=== PATIENT | female | born 1990 | race Caucasian/White ===

== ENCOUNTER → 2020-01-04 11:05 | Outpatient (CLI) | payer MEDICAID, SELFPAY ==
[2020-01-04 14:07] LABS: hCG Titer Quant., Serum 6058 mIU/mL (1-3)
== END ==
PROVIDERS: Referring Provider Obstetrics & Gynecology; Visit Provider Obstetrics & Gynecology
DX: Z78.9 Other specified health status (principal)
CPT/HCPCS: 36415; 84702

== ENCOUNTER → 2020-01-12 12:29 | Outpatient (CLI) | payer MEDICAID, SELFPAY ==
--- NOTE | 2020-01-12 12:30 | US_ITS ---
STUDY: FIRST TRIMESTER OBSTETRICAL ULTRASOUND REASON FOR EXAM: Female, 29 years old VIABILITY LMP: November 25, 2019 TECHNIQUE: Transvaginal TECHNICAL QUALITY: Adequate. PRIOR ULTRASOUND: None. FINDINGS: There is visualization of a single gestational sac in a normal intrauterine position. The mean sac diameter (MSD) measures 1.89 cm, indicating an estimated gestational age (EGA) of 6 weeks, 5 days. The gestational sac shape is within normal limits. There is a visualized yolk sac. The yolk sac measures 4.6 mm. The placenta is non-visualized. There is visualization of a live embryo. The crown-rump length (CRL) measures 8.6 mm, indicating an estimated gestational age (EGA) of 6 weeks, 5 days. There is demonstrated cardiac activity with a heart rate of 124 bpm. The estimated gestation age (EGA) by LMP is 6 weeks, 6 days. The estimated date of delivery (TAY) by LMP is August 31, 2020. The estimated gestation age (EGA) by US is 6 weeks, 5 days. The estimated date of delivery (TAY) by US is September 01, 2020. The uterus measures 8.6 cm x 6.1 cm x 5.3 cm.. There is no demonstrated uterine fibroid. The cervix is closed. There is a 2 cm x 2 cm x 1.9 cm subchorionic bleed. The right ovary measures 6.5 cm x 3.6 cm x 3.5 cm.. Within it, there is a 3.3 cm x 3.3 cm by 3.3 cm cyst. Adjacent to this, is a 2.7 cm x 2.5 cm x 1.9 cm cyst. The left ovary measures 2.7 cm x 1.7 cm x 1.8 cm. There is no left ovarian cyst. There is no visualized left adnexal mass or complex lesion. There is no fluid in the cul de sac. US/Init OB < 14Wks US IMPRESSION: Single live intrauterine gestation with a mean gestational age of 6 weeks and 5 days. There are 2 right ovarian cysts. Electronically Signed: Anthony Smith, at 13:39 EST , Service support ,
== END ==
PROVIDERS: Referring Provider Obstetrics & Gynecology; Visit Provider Obstetrics & Gynecology
DX: Z34.90 Encounter for supervision of normal pregnancy, unspecified, unspecified trimester (principal)
CPT/HCPCS: 76801

== ENCOUNTER → 2020-01-31 | Outpatient (CLI) | payer MEDICAID, SELFPAY ==
[2020-01-31 14:12] VITALS: BMI 25.2
[2020-01-31 16:39] LABS: Amphetamine Urine VISTA NEGATIVE (<1000 ng/mL); Barbiturate Urine VISTA NEGATIVE (< 200 ng/mL); Benzodiazepine Urine VISTA NEGATIVE (< 200 ng/mL); Cocaine Urine VISTA NEGATIVE (< 300 ng/mL); Ecstacy Urine VISTA NEGATIVE (< 500 ng/mL); Methadone Urine VISTA NEGATIVE (< 300 ng/mL); PCP Urine VISTA NEGATIVE (< 25 ng/mL); THC Urine VISTA NEGATIVE (< 50 ng/mL); Vista UDS pH Range 6
[2020-01-31 20:05] LABS: Chlamydia Trachomatis by PCR Negative (Negative); Neisserai gonorrhoeae by PCR Negative (Negative); Probe Check PASS; Sample Adequacy Control PASS; Specimen Processing Control PASS
[2020-02-04 03:06] LABS: HPV Genotype 16, Aptima Negative (Negative)
[2020-02-04 07:06] LABS: HPV APTIMA, High Risk Positive (Negative); HPV Genotype 18,45 Aptima Negative (Negative)
== END | disposition home or self-care (01) ==
LOC: LABSPEC 16:05
PROVIDERS: Visit Provider Obstetrics & Gynecology
DX: Z34.90 Encounter for supervision of normal pregnancy, unspecified, unspecified trimester (principal); Z12.4 Encounter for screening for malignant neoplasm of cervix
CPT/HCPCS: 80307; 87086; 87491; 87591; 87624; 88175; G0145

== ENCOUNTER → 2020-03-01 15:18 | Outpatient (CLI) | payer MEDICAID, SELFPAY ==
[2020-03-01 15:01] VITALS: BMI 25.2
[2020-03-01 15:50] LABS: Absolute Lymphocyte Count 1.67 X10^3/uL (0.83-4.51); Absolute Neutrophil Count 4.5 X10^3/uL (2.0-7.7); Basophil# 0.03 X10^3/uL; Basophil% 0.4 % (0-1); Eosinophil# 0.08 X10^3/uL; Eosinophils% 1.2 % (0-5); Hematocrit 34.4 % (37-47); Hemoglobin 11.7 g/dL (12.0-15.0); Lymphocyte # 1.67 X10^3/ul (4.0); Lymphocyte % 24.9 % (19-41); Mean Corpuscular Volume 96.9 fL (81-99); Mean Platelet Vol. 10.1 fl (6.2-12.0); Monocyte# 0.42 X10^3/uL; Monocyte% 6.3 % (0-10); NRBC Flagged by Analyzer 0 % (0-5); Neutrophil # 4.49 X10^3/uL (2.7-7.7); Neutrophil % 66.9 % (47-70); Platelet Count 223 K/mm3 (150-450); RBC Distribution Width CV 11.4 % (11.6-14.6); RBC Distribution Width SD 40.5 fl (35.1-43.9); Red Blood Count 3.55 M/mm3 (4.2-5.4); White Blood Count 6.7 K/mm3 (4.4-11.0)
[2020-03-02] LABS: Rapid Plasmin Reagin (RPR) NONREACTIVE (NONREACTIVE)
[2020-03-02 13:29] LABS: HIV - WCH Non-Reactive (Nonreactive); Hepatitis B Surface Antigen Non-Reactive (Nonreactive); Hepatitis C Antibody Non-Reactive (Nonreactive); Rubella IgG 140.9 IU/mL
== END ==
PROVIDERS: Referring Provider Nurse Practitioner Women's Health; Visit Provider Nurse Practitioner Women's Health
DX: O09.90 Supervision of high risk pregnancy, unspecified, unspecified trimester (principal); Z3A.00 Weeks of gestation of pregnancy not specified
CPT/HCPCS: 36415; 85025; 86592; 86703; 86762; 86803; 86850; 86900; 86901; 87340

== ENCOUNTER → 2020-04-28 15:50 | Outpatient (CLI) | payer MEDICAID, SELFPAY ==
[2020-04-27 14:12] VITALS: BMI 25.2
--- NOTE | 2020-04-28 15:52 | US_ITS ---
STUDY: SECOND AND THIRD TRIMESTER OBSTETRICAL ULTRASOUND REASON FOR EXAM: Female, 30 years routine screening LMP: 11/25/2019 TECHNIQUE: Transabdominal TECHNICAL QUALITY: Adequate. PRIOR ULTRASOUND: 01/22/2020 FINDINGS: There is a single intrauterine fetus. The fetus is in a breech presentation. There is demonstrated cardiac activity with a heart rate of 140 bpm. There is a normal amniotic fluid volume. The largest amniotic fluid pocket measures 3.6 cm. T. The placenta is anterior in location and is not low lying. There are Grade 1 placental changes. The cervix measures 3.9 cm in length. The bilateral adnexal regions are normal. BIOMETRY: BPD: 5.2 cm: 22 weeks, 0 days HC: 19.7 cm: 21 weeks, 6 days AC: 16.9 cm: 22 weeks, 0 days FL: 3.7 cm: 21 weeks, 6 days OFD: 6.7 cm: 22 weeks 0 days age by current US: 22 weeks, 0 days. TAY by current US: 09/01/2020. Estimated weight: 456 grams, +/- 67 grams, 29 %. age by prior US: 22 weeks, 0 days. TAY by prior US: 09/01/20. Age by LMP: 22 weeks, 1 days. TAY by LMP: 08/31/2020. ANATOMY: Gender: Female Cranium: Normal lateral ventricles. Normal choroid plexus. Normal cerebellum. Normal cisterna magna. Normal face, nose and lips. Chest: Normal 4-chamber heart. Abdomen/Pelvis: Normal diaphragm. Normal stomach. Normal abdominal wall. Normal cord insertion. Normal 3 vessel cord. Normal kidneys. Normal bladder. Spine: There is limited sonographic evaluation of the cervical, thoracic, lumbar spine, and sacrum due to baby''s position Extremities: Normal bilateral upper extremities. Normal bilateral lower extremities. US/OB Anatomy Scan IMPRESSION: Single live intrauterine at 22 weeks, 0 days by current ultrasound with TAY of 09/01/2020. Heart rate at 140 bpm. No suspicious sonographic findings. However, the cervical, thoracic, lumbar spine and sacrum are not well visualized due to position which on this study is breech. Normal growth noted since the previous study. Electronically Signed: Rod Maradiaga MD at 7:53 EDT , Service support ,
== END ==
PROVIDERS: Referring Provider Obstetrics & Gynecology; Visit Provider Obstetrics & Gynecology
DX: Z34.90 Encounter for supervision of normal pregnancy, unspecified, unspecified trimester (principal)
CPT/HCPCS: 76805

== ENCOUNTER → 2020-05-10 11:25 | Outpatient (CLI) | payer MEDICAID, SELFPAY ==
[2020-04-27 14:12] VITALS: BMI 25.2
--- NOTE | 2020-05-10 11:26 | US_ITS ---
STUDY: SECOND AND THIRD TRIMESTER OBSTETRICAL ULTRASOUND - LIMITED REASON FOR EXAM: Female, 30 years old SPINAL VIEWS LMP: November 25, 2019 PRIOR ULTRASOUND: Comparison is made with prior examination dated April 28, 2020. TECHNIQUE: Transabdominal TECHNICAL QUALITY: Adequate. FINDINGS: There is a single intrauterine fetus. The fetus is in a breech presentation. There is demonstrated cardiac activity with a heart rate of 143 bpm. There is a normal amniotic fluid volume. The largest amniotic fluid pocket measures 6.7 cm x 8.8 cm. The amniotic fluid index (SUSANA) is with normal limits. The placenta is posterior in location and is not low lying. There are Grade 0 placental changes. The cervix measures cm in length. Imaging of this spine was obtained. Limited visualization of the sacral and lower lumbar spine due to position. The remainder of the examination is unremarkable. US/OB Limited (No Biometrics) IMPRESSION: Limited visualization of the sacral and lower lumbar spine due to position. Otherwise, normal anatomy. Electronically Signed: Anthony Smith, at 15:46 EDT , Service support ,
== END ==
PROVIDERS: Referring Provider Obstetrics & Gynecology; Visit Provider Obstetrics & Gynecology
DX: O09.90 Supervision of high risk pregnancy, unspecified, unspecified trimester (principal); Z3A.00 Weeks of gestation of pregnancy not specified
CPT/HCPCS: 76815

== ENCOUNTER → 2020-06-09 13:37 | Outpatient (CLI) | payer MEDICAID, SELFPAY ==
[2020-05-26 14:40] VITALS: BMI 25.2
[2020-06-09 14:29] LABS: Absolute Lymphocyte Count 1.66 X10^3/uL (0.83-4.51); Absolute Neutrophil Count 5.6 X10^3/uL (2.0-7.7); Basophil# 0.02 X10^3/uL; Basophil% 0.3 % (0-1); Eosinophil# 0.06 X10^3/uL; Eosinophils% 0.8 % (0-5); Hematocrit 32.3 % (37-47); Hemoglobin 10.7 g/dL (12.0-15.0); Lymphocyte # 1.66 X10^3/ul (4.0); Mean Corp Hgb Conc 33.1 g/dL (32-36); Mean Corpuscular Hgb 32.4 pg (27.0-32.0); Mean Corpuscular Volume 97.9 fL (81-99); Mean Platelet Vol. 10.3 fl (6.2-12.0); Monocyte# 0.56 X10^3/uL; Monocyte% 7.1 % (0-10); NRBC Flagged by Analyzer 0 % (0-5); Neutrophil # 5.57 X10^3/uL (2.7-7.7); Neutrophil % 70.3 % (47-70); Platelet Count 233 K/mm3 (150-450); RBC Distribution Width CV 12.4 % (11.6-14.6); White Blood Count 7.9 K/mm3 (4.4-11.0)
[2020-06-09 14:51] LABS: Glucose Challenge Gest 1H 50g 128 mg/dL (70-140)
== END ==
PROVIDERS: Referring Provider Obstetrics & Gynecology; Visit Provider Obstetrics & Gynecology
DX: O09.90 Supervision of high risk pregnancy, unspecified, unspecified trimester (principal); Z3A.00 Weeks of gestation of pregnancy not specified
CPT/HCPCS: 36415; 82950; 85025

== ENCOUNTER → 2020-07-26 14:33 | Outpatient (CLI) | payer MEDICAID, SELFPAY ==
[2020-07-26 14:30] VITALS: BMI 25.2
[2020-07-26 15:04] LABS: Absolute Lymphocyte Count 1.85 X10^3/uL (0.83-4.51); Basophil# 0.02 X10^3/uL; Basophil% 0.2 % (0-1); Eosinophil# 0.05 X10^3/uL; Eosinophils% 0.6 % (0-5); Hematocrit 35.3 % (37-47); Hemoglobin 11.8 g/dL (12.0-15.0); Lymphocyte # 1.85 X10^3/ul (4.0); Lymphocyte % 21.6 % (19-41); Mean Corp Hgb Conc 33.4 g/dL (32-36); Mean Corpuscular Hgb 32.8 pg (27.0-32.0); Mean Corpuscular Volume 98.1 fL (81-99); Mean Platelet Vol. 10.3 fl (6.2-12.0); Monocyte# 0.55 X10^3/uL; Monocyte% 6.4 % (0-10); NRBC Flagged by Analyzer 0 % (0-5); Neutrophil # 6.04 X10^3/uL (2.7-7.7); Neutrophil % 70.5 % (47-70); Platelet Count 256 K/mm3 (150-450); RBC Distribution Width CV 12.9 % (11.6-14.6); RBC Distribution Width SD 46.3 fl (35.1-43.9); White Blood Count 8.6 K/mm3 (4.4-11.0)
== END ==
PROVIDERS: Referring Provider Obstetrics & Gynecology; Visit Provider Obstetrics & Gynecology
DX: O99.019 Anemia complicating pregnancy, unspecified trimester (principal); D64.9 Anemia, unspecified; Z3A.00 Weeks of gestation of pregnancy not specified
CPT/HCPCS: 36415; 85025

== ENCOUNTER → 2020-08-02 10:10 | Outpatient (CLI) | payer MEDICAID, SELFPAY ==
[2020-07-26 13:48] VITALS: BMI 25.2
[2020-07-26 14:30] VITALS: BMI 25.2
--- NOTE | 2020-08-02 10:11 | US_ITS ---
STUDY: SECOND AND THIRD TRIMESTER OBSTETRICAL ULTRASOUND - LIMITED REASON FOR EXAM: Female, 30 years old GROWTH LMP: 11/27/2019. PRIOR ULTRASOUND: Comparison is made with prior study dated 05/10/2020. TECHNIQUE: Transabdominal TECHNICAL QUALITY: Adequate. FINDINGS: There is a single intrauterine fetus. The fetus is in a cephalic presentation. There is demonstrated cardiac activity with a heart rate of 129 bpm. There is a normal amniotic fluid volume. The largest amniotic fluid pocket measures 7.16 cm. The amniotic fluid index (SUSANA) is 19.36 cm. The placenta is anterior in location and is not low lying. There are Grade 2 placental changes. The cervix measures 3.1 cm in length. BIOMETRY: BPD: 8.83 cm: 35 weeks, 5 days HC: 31.6 cm: 35 weeks, 4 days AC: 30.23 cm: 34 weeks, 2 days FL: 6.46 cm: 33 weeks, 3 days Age by LMP: 35 weeks, 4 days. TAY by LMP: 09/02/2020. age by prior US: 35 weeks, 5 days. TAY by prior US: 09/01/2020. age by current US: 34 weeks, 6 days. TAY by current US: 09/07/2020. Estimated weight: 2380 grams, +/- 348 grams, 16 percentile. US/OB Limited With Biometrics IMPRESSION: Single live uterine gestation with a mean gestational age of 35 weeks and 5 days. The measurements obtained today following within the normal expected range. Electronically Signed: Anthony Smith, at 12:20 EDT , Service support ,
== END ==
PROVIDERS: Referring Provider Obstetrics & Gynecology; Visit Provider Obstetrics & Gynecology
DX: O26.843 Uterine size-date discrepancy, third trimester (principal); Z3A.00 Weeks of gestation of pregnancy not specified
CPT/HCPCS: 76816

== ENCOUNTER 2020-08-09 10:40 | Outpatient (CLI) | payer MEDICAID, SELFPAY ==
[2020-08-02 11:49] VITALS: BMI 25.2
[2020-08-09 10:52] VITALS: TEMP 36.6
[2020-08-09 10:54] VITALS: BP 104/55; PULSE 82
[2020-08-09 11:03] VITALS: BMI 27.6
[2020-08-09 11:37] LABS: ROM Internal Control Test YES-OK TO RESULT pt. (Internal QC); ROM Patient Test Negative (Negative)
[2020-08-09 11:55] LABS: Bacteria 0 SEEN /hpf (None Seen); Mucous, Urine 0 SEEN /hpf (<or=2+); Red Blood Cells-Urine 0 SEEN /hpf (0-5); White Blood Cells 0 SEEN /hpf (0-5)
[2020-08-09 11:57] LABS: Color, Urine Yellow (Yellow); Glucose, Dipstick Normal (Normal); Ketone-Dipstick Negative (Negative); Leukocyte Esterase-Dipstick Negative /ul (Negative); Nitrite-Dipstick Negative (Negative); Occult Blood-Urine Negative /ul (Negative); Protein-Dipstick Negative (Negative); Urine Bilirubin Dipstick Negative (Negative); Urine Clarity Clear (Clear); Urine Urobilinogen Normal (Normal)
[2020-08-09 12:12] LABS: Squamous Epithelial Cells - UA 0-5 SEEN /hpf (5-10)
--- NOTE | 2020-08-09 14:43 | CASEMGMT ---
Social Work Labor and Delivery Unit Reason for Intervention: adoption planning, support. Summary: This casualty underwriter aware of this patient from prior phone and in-person conversations regarding adoption planning. This casualty underwriter met with patient/ mother on 05.26.2020 to review some preplanning and answer questions. MOB completed the adoptive checklist form for [facility] at that time. This casualty underwriter received phone call from prospective adoptive mother conveying an blade worker by the name of Tiffanie Cabello will be calling this casualty underwriter to touch base, and review patient's plan and wishes. Prospective adoptive mother conveyed to this casualty underwriter that the mother/patient actually on the labor and delivery until this date ruling out labor. This casualty underwriter noted that patient was in fact on the unit as a clinical outpatient. Met with patient in room. Patient expressed remembering this casualty underwriter. Sat with patient to check in and see how things are going. MOB confirms to be working with Tiffanie, blade worker. MOB reports the only thing that changed for the adoptive infant checklist, besides having an adoption agency in place, is that patient wants to do some skin to skin with baby after , voices anticipation this will be short in duration, with plan to give infant to the nursing staff and then to have adoptive parents provide all care of the baby. Patient's support person in the hospital will be the patient's mother. Patient reports plan to sign a power of contract attorney after baby is born allowing the prospective adoptive parents to care for baby outside of hospital. Assessment: Patient reports to be ready for this to be over and for the adoption planning to move forward. Patient reports this situation is a difficult one for the patient and not an easy decision. Patient reports to feel committed however to the making and adoption plan as patient does not have the space or finances to provide for the baby. Patient reports to feel she needs to focus on being able to care for the children who are already here. Patient has a 10 year old daughter Ally, and then a 7 year old son named Lio or Devyn. Supportive listening offered to the patient, validated feelings. Intervention: Placed adoptive infant checklist on chart on labor and delivery unit, just in case patient comes in during hours that social work is not the building. Emotional support provided to patient this date. Plan: Social work to follow and assist at time of delivery admission. -CECIL Telles, PHOTOGRAPHIC EDITOR
--- NOTE | 2020-08-12 17:30 | OB.TRI.PN_ITS ---
Progress Notes Date of Service: 08/09/20 Progress Note: 30yo at 36 weeks evaluated in triage for pelvic cramping and leakage of fluid. Cervix closed. Occasional contractions on toco, but not uncomfortable. UA negative for infection. ROM plus negative. NST reactive. Patient discharged to home in stable condition with good return precautions. Laboratory Studies: Laboratory Tests 08/09/20 08/09/20 Range/Units 11:30 11:00 Urine Color Yellow (Yellow) Urine Clarity Clear (Clear) Urine pH 8.0 (5.0 - 8.0) Ur Specific [place] 1.010 (1.002-1.030) Urine Protein Negative (Negative) mg/dl Urine Glucose (UA) Normal (Normal) mg/dl Urine Ketones Negative (Negative) mg/dl Urine Occult Blood Negative (Negative) /ul Urine Nitrite Negative (Negative) Urine Bilirubin Negative (Negative) mg/dL Urine Urobilinogen Normal (Normal) mg/dl Ur Leukocyte Esterase Negative (Negative) /ul Urine RBC 0 SEEN (0-5) /hpf Urine WBC 0 SEEN (0-5) /hpf Ur Squamous Epith Cells 0-5 SEEN (5-10) /hpf Urine Bacteria 0 SEEN (None Seen) /hpf Urine Mucus 0 SEEN (<or=2+) /hpf Vag Amniotic Fld Detect Negative (Negative) - Problem List (1) Vaginal discharge during Status: Acute Multi Select Codes - Urinary/Genital Urinary/Genital CPT Codes: 93554-63 non-stress test Interp
== END 2020-08-09 12:35 | disposition home or self-care (01) ==
LOC: WPOUT 10:45 → WP 10:45
PROVIDERS: Obstetrics & Gynecology; Referring Provider Obstetrics & Gynecology; Visit Provider Obstetrics & Gynecology
DX: O26.893 Other specified pregnancy related conditions, third trimester (principal); R10.2 Pelvic and perineal pain; N89.8 Other specified noninflammatory disorders of vagina; Z3A.36 36 weeks gestation of pregnancy
CPT/HCPCS: 59025; 59050; 81001; 84112; 99218; G0378

== ENCOUNTER → 2020-08-16 | Outpatient (CLI) | payer MEDICAID, SELFPAY ==
[2020-08-16 11:03] VITALS: BMI 27.6
== END | disposition home or self-care (01) ==
LOC: LABSPEC 13:39
PROVIDERS: Referring Provider Obstetrics & Gynecology; Visit Provider Obstetrics & Gynecology
DX: O09.90 Supervision of high risk pregnancy, unspecified, unspecified trimester (principal); Z3A.00 Weeks of gestation of pregnancy not specified
CPT/HCPCS: 87081

== ENCOUNTER 2020-08-24 09:40 | Inpatient (IN) | payer MEDICAID, SELFPAY ==
[2020-05-26 14:40] VITALS: BMI 25.2
[2020-08-16 11:03] VITALS: BMI 27.6
[2020-08-24] VITALS (16 sets, daily range): BP systolic 88–116; BP diastolic 40–70; PULSE 72–103; RESP 16–18; TEMP 36.3–37; O2SAT 96–99; BMI 28.0
--- NOTE | 2020-08-24 | IMM_PTH ---
PATIENT: NGUYỄN EVANGELISTA LOC: WP U#:[id number] AGE/SX: 30/F ROOM: WP005 RE08/24/[address]: Dr. Cindy Gilliland MD : 1990 BED: 1 DIS: 08/25/2020 SPEC #: [id number] RECD: 08/28/20 13:59 STATUS: IRMA REQ #: [id number] HAVEN: 08/24/20 00:[address]: Cindy Gilliland DEPT: IMMUNOHISTOCHEMISTRY RECD BY: Stephie Vega ENTERED: 08/28/20 14:00 SP TYPE: IMMUNO OTHR DR: No Primary Care Phys Tissues: Fallopian tube Procedures: Charli Ret (add) CD31 (add) CK20 (add) CK8 (add) Vimentin (add) FACTOR VIII (add) CK7 (initial) PHYSICIAN & INSTITUTION [place] [id number] SPECIMEN INFORMATION: Tissue Source: Fallopian tubes Clinical Info: Sterilization Specimen Number: [id number] #2 CPT code: 67341, 01614 x6 METHODOLOGY: Deparaffinized sections of prefer/formalin-fixed tissue or PAP/DQ stained slides are incubated with monoclonal/polyclonal antibodies/oligonucleotide probes. Localization is made via biotin free immunoperoxidase method. Appropriate controls are performed and reacted as expected. Results on target cell population are indicated in the following table: RESULTS: ANTIBODY / CLONE RESULT Block 2 CK7 (OV-TL12/30) positive CK8 (41eqdrE98) positive CK20 (KS20.8) negative Vimentin (V9) positive CD31 (PEG/70A) negative Factor VIII (R Ag) negative CALRET (polyclonal) positive These tests were developed and their performance characteristics determined by [facility]. They may not have been cleared or approved by the U.S. Food and Drug Administration. The FDA has determined that such clearance or approval is not necessary. The above immunohistochemical/dualISH markers are ordered and reviewed by the Pathologist. INTERPRETATION: Fallopian tubes: Benign adenomatoid tumor. SJ:janette 08/29/20
--- NOTE | 2020-08-24 09:06 | HP.PCM_ITS ---
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 random tox screen, social and political studies professor consult (5) Status: Acute Qualifiers: Comment: nipt and carrier, ntd screening declined. anatomy normal. GBS negative (6) with adoption planned Status: Acute Comment: private adoption planned- [place]. (7) Sterilization Status: Acute Comment: planning BS, title 19 signed 05/26 (8) Supervision of high risk , antepartum Status: Acute Comment: PRR TAY 08/31/20 girl PC- lacie, gael spouse saul (dtr Maday) (9) Tobacco smoking affecting Status: Acute Qualifiers: Comment: encouraged cessation (10) Uterine size-date discrepancy, third trimester Status: Acute Comment: 08/02- growth 16% (11) Vaginal discharge during Status: Acute History and Physical Date of Admission: 08/24/20 Intake Vital Signs 08/16/20 BMI 27.6 08/16/20 Height 5 ft 7 in 08/16/20 Weight: 182 lb 8 oz 08/16/20 BMI 28.5 08/16/20 BP 108/70 Intake Visit Reasons: 38WK OB Stringed Instrument Repairer Required: No Is patient in pain?: No Allergies acetaminophen [From Percocet] Allergy (Mild, Verified 08/16/20 11:02) Hives oxycodone [From Percocet] Allergy (Mild, Verified 08/16/20 11:02) Hives Medications vitamin#30 30 mg iron-10 mg iron-folic acid 1 mg-omg3 capsule 1 cap PO DAILY 01/31/20 [History Confirmed 08/16/20] sertraline 50 mg tablet 50 mg PO QDAY #30 tab 03/27/20 [Rx Confirmed 08/16/20] ferrous sulfate 325 mg (65 mg iron) tablet 325 mg PO DAILY 06/29/20 [History Confirmed 08/16/20] Last Menstral Period: 11/25/19 Zika: Zika virus screening: Negative : No PFSH PFSH Medical History Anxiety and depression (Acute) Post traumatic stress disorder (PTSD) (Acute) Seasonal allergies (Acute) Surgical History delivery delivered (Acute) Social History (Updated 08/16/20 @ 21:[address] Lexi Aguayo MD) Smoking Status: Light Smoker (<10/day) alcohol intake: never substance use type: does not use caffeine: Yes what type of physical activity do you participate in: none seatbelt use: always do you feel safe at home: Yes additional social history: Saul- Works for [employer] Patient stays at home Pregancy History 4 Elective abortions Hx Para 2 Spontaneous abortions 1 Hx # Term Pregnancies Ectopic pregnancies Hx # Pregnancies Multiple births # of living children 2 Past Pregnancies Del. Date Name GA/Weeks Outcome Route Bth Weight Gen Labor Lgth Anesthesia Del Locatn Provider FOB Unknown 2009 Ali 36 live - 6lbs Female spinal [place] Unknown 2011 [place] 38 live - full term 6lbs 8oz Male spinal [place] Delivery Date: On 01/31/20 @ 14:19 Demi Han Complete placental previa Delivery Date: On 01/31/20 @ 14:20 Demi Han placenta previa HPI 38WK OB : Details: NGUYỄN EVANGELISTA is a 30 year old who presents for RLTCS and BS desired sterilization. OB Visit TAY Calculator Estimated Delivery Date Method Current WG Current Estimate 08/31/20 LMP (Certain) 37w 6d Other Estimates 09/01/20 Ultrasound #1 37w 5d Expected Delivery Route/Plan RLTCS w/ SM h/o previa x 2 Specific Issue/Plans flu vaccine: tdap vaccine: given rhogam: na LARC form signed: declined movement and labor precautions reviewed. Problem list reviewed and updated with the most current plan of care details and appropriate orders placed. Relevant counseling for the gestational age provided. Continue routine care and follow up unless otherwise noted in visit notes/problem list details Initial Weight: 155 lb Date EGA Weight BP Urine Prot Glucose FHR FuHt Pres Dilation Effaced St Visit Note 01/31/20 9w 4d 161 lb (+6 lb) 106/62 160 03/01/20 13w 6d 159 lb 2 oz (+4 lb 2 oz) 118/68 151 MH-unable to give urine specimen. Denies VB, LOF. Anatomy US sched 04/13. Declines genetic testing. Will get PNL today. 03/27/20 17w 4d 163 lb (+8 lb) 110/70 Negative Negative 150 SM-no vb lof good fm no regular ctx 04/27/20 22w 0d 162 lb (+7 lb) 104/70 150 SM- no vb lof good fm no regualr ctx. 05/26/20 26w 1d 169 lb (+14 lb) 108/72 Negative Negative 150 26 SM- no vb lof good fm no regular ctx, will do gct this week, title 19 signed, plan cs at 39 weeks. tdap next visit. discussed planning adoption 06/29/20 31w 0d 118/60 Negative Negative 145 31 SM- no vb lof good fm no regular ctx 07/26/20 34w 6d 175 lb (+20 lb) 118/70 145 33 SM- no vb lof good fm no regular ctx schedule us check cbc larc signed 08/02/20 35w 6d 176 lb 4 oz (+21 lb 4 oz) 106/66 Negative Negative 130 35 GP - No LOF, VB, DFM. Increasing contractions. More pelvic pain and pressure. Discussed conservative measures. 08/16/20 37w 6d 182 lb 8 oz (+27 lb 8 oz) 108/70 Negative Negative 120 37 GP - No LOF, VB, regular ctx. Reported DFM - NST reactive. GBS done today. Diagnostics Diagnostics Diagnostics Glucose 1 Hr 50 gm 128 mg/dL (70-140) 06/09/20 Hgb 11.8 g/dL (12.0-15.0) L 07/26/20 Hct 35.3 % (37-47) L 07/26/20 Details: HIV: Urine Culture: Sequential Screen: NIPT Screen: ROS Const Reports system reviewed and no additional complaints, except as documented Card Reports system reviewed and no additional complaints, except as documented Resp Reports system reviewed and no additional complaints, except as documented GI Reports system reviewed and no additional complaints, except as documented, Reports nausea Reports system reviewed and no additional complaints, except as documented Musc Reports system reviewed and no additional complaints, except as documented all other systems reviewed and negative Exam Const General: cooperative, healthy appearing, comfortable HENMT Head: normal to inspection Nose: external nose normal Face and sinus: normal facial exam Neck Neck: normal visual inspection, full ROM, no lymphadenopathy Thyroid: thyroid normal Chest Chest palpation & inspection: normal inspection of the chest Resp Effort & Inspection: normal respiratory effort GI Inspection: normal to inspection Palpation: soft, other (gravid uterus) Other: infant vertex and appropriate size for gestational age Other: Cervical Exam: Extrem General: pedal edema Office Procedures OB NST Non-Stress Test Indications for Monitoring: Yes decreased movement Heart Rate Baseline: 120 Heart Rate Variability: moderate Movement: Present Heart Rate Accelerations: Present Decelerations: Absent Results POC Urinalysis 2 Dip (Clinic) Office Urine Glucose Negative Last Edit by Robyn Barfield on 08/16/20 11:10 Office Urine Protein Negative Last Edit by Robyn Barfield on 08/16/20 11:10 Assessment & Plan Problems 1. Vaginal discharge during O26.899; N89.8 2. Uterine size-date discrepancy, third trimester O26.843 08/02- growth 16% 3. History of delivery Z98.891 RLTCS and BS with SM 08/24 scheduled 4. Sterilization Z30.2 planning BS, title 19 signed 05/26 5. with adoption planned Z34.90 private adoption planned- [place]. 6. Anxiety and depression F41.9; F32.9 zoloft, encouraged counseling 7. HPV test positive repeat at pp 8. 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 random tox screen, social and political studies professor consult 9. Tobacco smoking affecting O99.330 encouraged cessation 10. Supervision of high risk , antepartum O09.90 PRR TAY 08/31/20 girl PC- lacie, gael spouse saul (dtr Maday) 11. 37 weeks gestation of Z3A.37 nipt and carrier, ntd screening declined. anatomy normal. plan RLTCS and BS for sterilization Orders Orders: POC Urinalysis 2 Dip (Clinic) Today OB NST Today O36.8130 Culture, Group B Streptococcus Today O09.90 Coding Level of Care Code Off vis,est,level 3 Diagnoses Vaginal discharge during O26.899; N89.8 Uterine size-date discrepancy, third trimester O26.843 History of delivery Z98.891 Sterilization Z30.2 with adoption planned Z34.90 Anxiety and depression F41.9; F32.9 HPV test positive History of methamphetamine use Z87.898 Tobacco smoking affecting O99.330 Supervision of high risk , antepartum O09.90 37 weeks gestation of Z3A.37 ??Weeks of gestation: 37 weeks Additional Codes Non-Stress Test (38381)
[2020-08-24] MEDS: Lactated Ringers 1,000 ML 999 ML IV (10:10)
[2020-08-24 10:34] LABS: Absolute Lymphocyte Count 1.58 X10^3/uL (0.83-4.51); Basophil# 0.03 X10^3/uL; Basophil% 0.4 % (0-1); Eosinophil# 0.06 X10^3/uL; Eosinophils% 0.8 % (0-5); Hematocrit 33.8 % (37-47); Hemoglobin 10.8 g/dL (12.0-15.0); Lymphocyte # 1.58 X10^3/ul (4.0); Lymphocyte % 21.9 % (19-41); Mean Corpuscular Hgb 31.8 pg (27.0-32.0); Mean Corpuscular Volume 99.4 fL (81-99); Mean Platelet Vol. 10.5 fl (6.2-12.0); Monocyte% 6.9 % (0-10); NRBC Flagged by Analyzer 0 % (0-5); Neutrophil # 5.01 X10^3/uL (2.7-7.7); Neutrophil % 69.3 % (47-70); Platelet Count 213 K/mm3 (150-450); RBC Distribution Width CV 13.2 % (11.6-14.6); White Blood Count 7.2 K/mm3 (4.4-11.0)
[2020-08-24] MEDS: Acetaminophen 500 MG Tablet 1000 MG PO ×2 (11:04→18:26)
[2020-08-24] MEDS: Lactated Ringers 1,000 ML 150 ML IV (11:06)
--- NOTE | 2020-08-24 11:20 | CASEMGMT ---
SOCIAL WORK Reason for Consult: Planned Adoption 10:30a- Received call from Yelena ([phone]) with [facility]. Per Yelena, has been in contact with mother and prospective adoptive parents. Yelena reports mother has been wavering on decision of adoption and has informed MOB she will have support if she decides against adoption. Yelena states prospective adoptive parents to be in around noon for scheduled . This worker met with mother of baby (MOB) and support person, Renae (whom MOB refers to as corie.) MOB reports Renae is not her biological mother. MOB voices indifferent feelings about adoption and states does want to have contact with baby after and complete skin to skin. RONDA reports has two other children in the home, Ali (10) and Montverde (8) who are excited about baby and do not fully understand adoption plan. MOB states children asked her before she left the home if she will be coming home with baby. MOB emotional and stating she does not know how she feels or what decision to make at this time. MOB states initially decided on adoption as she knew relationship with FOB was not going to work and did not want to raise another baby alone. RONDA reports has been in contact with prospective adoptive parents (Tereza and Fish-MOB does not know their last name) over the last day and a half along with Yelena, social service assistant with [facility]. MOB states Yelena knows I'm going back and forth. Emotional support provided to MOB throughout. Informed MOB this worker will follow up after delivery and plan does not need confirmed at this time. Nursing updated on the above. Dennis Culver, DRY CURE WORKER, MAINTENANCE SHOP LABORER
[2020-08-24] MEDS: Sodium Citrate/Citric Acid 30 ML UDC PO (11:32)
[2020-08-24] MEDS: Cefazolin 2 GM in 0.9% Normal Saline 100 ML IV (11:45)
[2020-08-24] MEDS: Oxytocin 30 units/NS 500 ml 30 UNITS/500 ML IV.SOLN 167 UNITS IV (13:05)
--- NOTE | 2020-08-24 13:14 | PCM.OPRPT ---
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 random tox screen, social welfare clerk consult (5) Status: Acute Qualifiers: Comment: nipt and carrier, ntd screening declined. anatomy normal. GBS negative (6) with adoption planned Status: Acute Comment: private adoption planned- [place]. (7) Sterilization Status: Acute Comment: planning BS, title 19 signed 05/26 (8) Supervision of high risk , antepartum Status: Acute Comment: PRR TAY 08/31/20 girl PC- lacie, gael spouse saul (dtr Maday) (9) Tobacco smoking affecting Status: Acute Qualifiers: Comment: encouraged cessation (10) Uterine size-date discrepancy, third trimester Status: Acute Comment: 08/02- growth 16% (11) Vaginal discharge during Status: Acute Report of Operation Date of Procedure: 08/24/20 Pre-Operative Diagnosis: PREVIOUS DESIRED STERILIZATION Post-Operative Diagnosis: same Surgery/Procedure Performed:: rltcs and BS cable splicer assistant: Stephanie Rodarte Type of Anesthesia:: Spinal Special Medications: pat Specimen's removed: tubes Drains: none Estimated Blood Loss (mL): 900 Fluids Replaced: crystalloid Description of Procedure: Spinal anesthesia was placed without difficulty. Damon catheter was placed. The patient was placed in the dorsal supine position with leftward tilt. Patient was prepped and draped in the normal sterile fashion. Pfannenstiel skin incision was made with the scalpel and carried through to the underlying layer of fascia with the scalpel. Fascia was nicked in the midline and the incision extended laterally. The rectus bellies were dissected off superiorly and inferiorly with out complication both sharply and bluntly. The peritoneum was entered digitally. The incision was stretched and a low transverse uterine incision was made with the scalpel. The infant's head was delivered atraumatically followed by the anterior and posterior shoulders without complication the rest of the infant delivered. The cord was clamped and cut and the infant was handed off to awaiting nurse. The placenta was delivered spontaneously immediately following and was noted to be intact and have a three-vessel cord. The uterus was exteriorized cleared of all clots and debris, and the incision was closed in a double layer closure using #1 Monocryl. The ovaries and fallopian tubes were noted to be within normal limits. Patient had desired sterilization and was counseled preoperatively regarding irreversibility and permanency. Therefore bilateral fallopian tubes were elevated and transected across using a LigaSure device starting proximally to distally without complication the entire fallopian tubes were removed. The uterus was returned to the maternal abdomen and gutters were cleared of all clots and debris. The peritoneum was closed with 3-0 Monocryl in a running fashion. Gloves were changed prior to fascial closure. Fascia was closed with 0 PDS in a running fashion. Subcutaneous tissue was copiously irrigated and the skin was closed with 3-0 Monocryl in a subcuticular fashion. Mepilex dressing was applied without complication. Patient was taken to recovery in stable condition. Grafts/Implants Used: none - Complications none - Admit VTE Documentation VTE Present on Admission: No VTE Mechan Device Prophylaxis: SCD's
[2020-08-24] MEDS: DiphenhydrAMINE 50 MG/ML Syringe IV (13:43)
--- NOTE | 2020-08-24 14:16 | FALS_PTH ---
PATIENT: NGUYỄN EVANGELISTA LOC: [facility] U#:[id number] AGE/SX: 30/F ROOM: WP005 RE08/24/[address]: Dr. Cindy Gilliland MD : 1990 BED: 1 DIS: 08/25/2020 SPEC #: [id number] RECD: 08/25/20 08:07 STATUS: IRMA YOSHI #: [id number] HAVEN: 08/24/20 14:[address]: Cindy Gilliland DEPT: SURGICAL PATHOLOGY RECD BY: Matilde Brumfield ENTERED: 08/25/20 08:08 SP TYPE: FALL TUBES OTHR DR: No Primary Care Phys Tissues: Fallopian tube Procedures: Surgery Specimen Level II Surgery Specimen Level IV HEADER OPERATION: Tubal ligation PRE-OP DIAGNOSIS: Sterilization TISSUE SUBMITTED: Fallopian tubes, suture in right MICROSCOPIC DIAGNOSIS Bilateral fallopian tubes, salpingectomy: Right fallopian tubes including fimbrial end, no pathologic diagnosis. Focal decidual changes, bilateral fallopian tubes. 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 See comment. GENNARO:janette 08/29/20 COMMENT Immunohistochemistry ([id number]) supports the above diagnosis. MICROSCOPIC DESCRIPTION Slides are reviewed. GROSS DESCRIPTION Received in fixative is one container labeled with the patient's name and designated bilateral fallopian tubes, right with suture. The specimen consists of two fallopian tubes with an average length of 3.6 cm and has an average diameter of 0.8 cm. Both fallopian tubes have normal fimbriated ends. No mass lesions are identified. Fire Alarm Operator sections are submitted in two cassettes as follows: 1 - right fallopian tube, 2 - left fallopian tube. / AM:janette 08/25/20 The rest of the specimen is submitted in three cassettes. Cassette 5 contains the portion of tube with suture. / SJ:janette 08/28/20 TC:1 CPT: 13892, 96562
[2020-08-24 14:31] LABS: Pathology Specimen OB SEE PATHOLOGY REPORT
[2020-08-24] MEDS: Lactated Ringers 1,000 ML 100 ML IV (16:00)
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
[2020-08-24] MEDS: Sertraline 50 MG Tablet PO (18:27)
[2020-08-24] MEDS: Ketorolac 30 MG/ML Syringe IV (18:27)
[2020-08-24] MEDS: 0.9% Saline Lock 10 ML Syringe IV (18:27)
[2020-08-24] MEDS: DiphenhydrAMINE 25 MG Capsule 50 MG PO (21:23)
[2020-08-25 00:02] VITALS: BP 88/34; PULSE 78; RESP 18; TEMP 36.8; O2SAT 97
[2020-08-25] MEDS: Acetaminophen 500 MG Tablet 1000 MG PO ×3 (00:22→13:08)
[2020-08-25] MEDS: 0.9% Saline Lock 10 ML Syringe IV ×2 (00:23→06:33)
[2020-08-25] MEDS: Ketorolac 30 MG/ML Syringe IV ×2 (00:23→06:32)
[2020-08-25 04:41] LABS: Hematocrit 30.8 % (37-47); Hemoglobin 9.9 g/dL (12.0-15.0); Mean Corp Hgb Conc 32.1 g/dL (32-36); Mean Corpuscular Volume 99.7 fL (81-99); Mean Platelet Vol. 10.2 fl (6.2-12.0); Platelet Count 200 K/mm3 (150-450); RBC Distribution Width CV 13.2 % (11.6-14.6); RBC Distribution Width SD 47.7 fl (35.1-43.9); Red Blood Count 3.09 M/mm3 (4.2-5.4); White Blood Count 13.1 K/mm3 (4.4-11.0)
[2020-08-25 04:45] VITALS: BP 92/39; PULSE 70; RESP 18; TEMP 36.6; O2SAT 99
[2020-08-25 08:00] VITALS: BP 100/59; PULSE 71; RESP 16; TEMP 36.6
[2020-08-25] MEDS: Sertraline 50 MG Tablet PO (10:23)
[2020-08-25] MEDS: Senna/Docusate Sodium 1 Tablet PO (10:23)
[2020-08-25] MEDS: Ferrous Sulfate 325 MG Tablet PO (10:24)
[2020-08-25 12:00] VITALS: BP 114/57; PULSE 80; RESP 15; TEMP 36.1
--- NOTE | 2020-08-25 12:30 | PN.OBGYN_ITS ---
Patient Problems: Active and Suspected Problems (Last Reviewed 08/16/20 @ 11:02 by Robyn Barfield) Vaginal discharge during (Acute) Uterine size-date discrepancy, third trimester (Acute) 08/02- growth 16% History of delivery (Acute) RLTCS and BS with SM 08/24 scheduled Sterilization (Acute) planning BS, title 19 signed 05/26 with adoption planned (Acute) private adoption planned- [place]. Anxiety and depression (Acute) zoloft, encouraged counseling HPV test positive (Acute) repeat at pp History of methamphetamine use (Acute) alcohol, marijuana in past also, recovery 11 years. random tox screen, dialysis social worker consult Tobacco smoking affecting (Acute) encouraged cessation Supervision of high risk , antepartum (Acute) PRR TAY 08/31/20 girl PC- lacie, gael spouse saul (dtr Maday) (Acute) nipt and carrier, ntd screening declined. anatomy normal. GBS negative Subjective: Patient doing well without complaints. Tolerating PO. Ambulating and voiding without difficulty. breast feeding well. Denies chest pain, shortness of breath, calf pain/swelling, fevers, chills, lightheadedness. - Physical Exam Vitals/I&O's: Vital Signs Temp Pulse Resp BP Pulse Ox 97.9 F 71 16 100/59 L 99 08/25/20 08:00 08/25/20 08:00 08/25/20 08:00 08/25/20 08:00 08/25/20 04:45 Oxygen Delivery Method Room Air Weight: 179 lb 6 oz Body Mass Index (BMI) 28.0 Intake and Output for Last 24 Hours 08/23/20 08/24/20 08/25/20 23:59 23:59 23:59 Intake Total 3784.17 / 3784.17 800 / 800 Output Total 4000 / 4000 900 / 900 Balance -215.83 / -215.83 -100 / -100 General: Alert, Oriented x3 Laboratory Results 08/25/20 04:35: WBC 13.1 H, RBC 3.09 L, Hgb 9.9 L, Hct 30.8 L, MCV 99.7 H, MCH 32.0, MCHC 32.1, RDW Std Deviation 47.7 H, RDW Coeff of Mich 13.2, Plt Count 200, MPV 10.2 Current Medications Acetaminophen (Acetaminophen 500 Mg Tablet) 1,000 mg PO Q6H [facility] Last Admin: 08/25/20 06:33 Dose: 1,000 mg Documented by: Hydrocodone Bitart/Acetaminophen (Hydrocodone Bitartrate/Apap 5/325 Tablet) 1 tablet PO Q4H PRN PRN PRN Reason: Pain Score 4-10 Bisacodyl (Bisacodyl 10 Mg Suppository) 10 mg RECTAL UD PRN PRN Reason: If no BM Diphenhydramine HCl (Diphenhydramine 25 Mg Capsule) 50 mg PO TID PRN PRN PRN Reason: ITCHING Last Admin: 08/24/20 21:23 Dose: 50 mg Documented by: Ferrous Sulfate (Ferrous Sulfate 325 Mg Tablet) [facility] Last Admin: 08/25/20 10:24 Dose: 325 mg Documented by: Hydrocortisone (Hydrocortisone 2.5% Crm) 1 applic TOPICAL TID PRN PRN; Protocol PRN Reason: Discomfort Methylergonovine Maleate (Methylergonovine 0.2 Mg/Ml Ampul) 0.2 mg IM X1 PRN PRN Reason: Uterine Atony Nalbuphine HCl (Nalbuphine 10 Mg/Ml Ampul) 5 mg IV Q3H PRN PRN PRN Reason: ITCHING Stop: 08/25/20 14:02 Naloxone HCl (Naloxone 0.4 Mg/Ml Syringe) 0.02 mg IV Q1M PRN PRN Reason: RR <10 and pt unresponsive Naproxen (Naproxen 250 Mg Tablet) 500 mg PO Q8 [facility] Last Admin: 08/25/20 01:40 Dose: Not Given Documented by: Ondansetron HCl (Ondansetron 4 Mg/2 Ml Vial) 4 mg IV Q4H PRN PRN PRN Reason: Nausea Multivit/Folic Acid/Iron ( Vits Tablet) 1 tablet PO DAILY@1200 [facility] Prochlorperazine Edisylate (Prochlorperazine 10 Mg/2 Ml Vial) 10 mg IV Q6H PRN PRN PRN Reason: NAUSEA Senna/Docusate Sodium (Senna/Docusate Sodium 1 Tablet) 0 tablet PO DAILY [facility] Last Admin: 08/25/20 10:23 Dose: 1 tablet Documented by: Sertraline HCl (Sertraline 50 Mg Tablet) 50 mg PO DAILY [facility] Last Admin: 08/25/20 10:23 Dose: 50 mg Documented by: Simethicone (Simethicone 80 Mg Tablet) 80 mg PO PCHS PRN PRN Reason: Indigestion/stomach pain Sodium Chloride (0.9% Saline Lock 10 Ml Syringe) 5 - 15 ml IV UD PRN PRN Reason: SALINE FLUSH Last Admin: 08/25/20 06:33 Dose: 10 ml Documented by: Medical Necessity - Tobacco Use Smoking Status: Current every day smoker Assessment/Plan All Active Problems (Last Reviewed 08/16/20 @ 11:02 by Robyn Barfield) Vaginal discharge during (Acute) Uterine size-date discrepancy, third trimester (Acute) History of delivery (Acute) Sterilization (Acute) with adoption planned (Acute) Anxiety and depression (Acute) HPV test positive (Acute) History of methamphetamine use (Acute) Tobacco smoking affecting (Acute) Supervision of high risk , antepartum (Acute) (Acute) Anemia affecting (Resolved) Right ovarian cyst (Resolved) s/p LTCS PPD # 1 1. routine post care 2. breast feeding- support given 3. rh positive 4. rubella immune
--- NOTE | 2020-08-25 12:32 | PCM.DCCSEC ---
Discharge Diet: No Restrictions Discharge Activity: May Not Drive - for 2 weeks, May not drive while taking narcotic pain medications., May Shower, May Take a Tub Bath - in 7 days May resume sexual activity in: 4-6 weeks Lifting Restrictions: 20 pounds Additional Activity Instructions:: Nothing in the vagina for 4-6 weeks. You may return to work/school in 6 weeks. Call your doctor if your incision/area has: Continuous Slow Oozing, Sudden Increased Bleeding, Increased Pain/ Swelling, Increased Redness, Foul Smelling Discharge Call your doctor if you observe: Fever of 101 or Higher, Using more than one pad per hour - for 2 hours Suture Line Care: Avoid Pulling/Pushing, Avoid Pinching/Bending Cleanse incision/area with: Keep Dressing Clean & Dry Additional Instructions: If you experience any of the following, contact your healthcare provider. Bleeding that soaks a pad every hour for 2 hours Fever 100.4 or higher Unrelieved incision or abdominal pain Swelling, redness, discharge or bleeding from your incision or episiotomy site Your incision begins to separate Problems urinating (including inability to urinate or burning while urinating). Visual changes Severe headache Flu-like symptoms Pain or redness in one of both of your breasts Pain, warmth, tenderness or swelling in your legs, especially the calf area Frequent nausea and vomiting Symptoms of depression or anxiety If you experience any of the following, call 911 or go to the nearest Emergency Room. Chest pain Problems breathing Seizure activity Partial or complete paralysis of a body part, slurred speech, weakness or drooping of the face, or a sudden inability to walk or hold your balance Allergies/Adverse Reactions: Allergies acetaminophen [From Percocet] Allergy (Mild, Verified 08/16/20 11:02) Hives Hives and vomitting oxycodone [From Percocet] Allergy (Mild, Verified 08/16/20 11:02) Hives Hives and vomitting Medications to take at Discharge vitamin#30 30 mg iron-10 mg iron-folic acid 1 mg-omg3 capsule 1 cap PO DAILY 01/31/20 ferrous sulfate 325 mg (65 mg iron) tablet 325 mg PO DAILY 06/29/20 Sertraline HCl [Zoloft] 50 mg PO QDAY 08/24/20 Hydrocodone/Acetaminophen [[place] 5-325 Tablet] 1 ea PO Q4H PRN PRN 4 Days #15 tab 08/25/20 Ibuprofen [Motrin] 600 mg PO Q6H PRN PRN #30 tab 08/25/20 Naproxen [Naprosyn] 250 - 500 mg PO Q8H PRN PRN #30 tab 08/25/20 The following prescriptions were given: Ibuprofen [Motrin] 600 mg PO Q6H PRN PRN #30 tab PRN Reason: Pain Naproxen [Naprosyn] 250 - 500 mg PO Q8H PRN PRN #30 tab PRN Reason: MILD PAIN Transmission Status: Received by [facility] Hydrocodone/Acetaminophen [[place] 5-325 Tablet] 1 ea PO Q4H PRN PRN 4 Days #15 tab PRN Reason: Pain Transmission Status: Received by [facility] Follow-Up: Call to make an appointment with your doctor for an incision check in 1-2 weeks. You will also need a 6 week post- follow up appointment. Test results from this visit will be discussed in further detail at your follow-up appointment, if applicable. Please Follow Up With: Cindy Gilliland MD - Call to make an appointment for an incision check in 1-2 [phone] When: You will need a post- check in 6 weeks. Primary Care Physician: Care Physician,No Primary [Primary Care Provider] -
[2020-08-25] MEDS: Prenatal Vits Tablet 1 TABLET PO (13:08)
[2020-08-25] MEDS: Naproxen 250 MG Tablet 500 MG PO (13:11)
--- NOTE | 2020-08-25 16:53 | NURSING ---
pt given dc instructions pt verbalizes understanding; pt received dyana and suzanne from [facility]. pt waiting for car seat for discharge
== END 2020-08-25 17:35 | disposition home or self-care (01) | DRG 539 ==
PROVIDERS: Admitting Provider Obstetrics & Gynecology; Referring Provider Obstetrics & Gynecology; Visit Provider Obstetrics & Gynecology
PROC: 10D00Z1 Extraction of Products of Conception, Low, Open Approach (ICD-10-PCS; CPT 59514; principal; 2020-08-24 11:45)
DX: O34.211 Maternal care for low transverse scar from previous cesarean delivery (principal); F32.9 Major depressive disorder, single episode, unspecified; F41.9 Anxiety disorder, unspecified; O99.344 Other mental disorders complicating childbirth; F17.200 Nicotine dependence, unspecified, uncomplicated; O99.334 Smoking (tobacco) complicating childbirth; Z87.898 Personal history of other specified conditions; Z3A.37 37 weeks gestation of pregnancy; Z37.0 Single live birth; O98.32 Other infections with a predominantly sexual mode of transmission complicating childbirth; A63.0 Anogenital (venereal) warts; Z30.2 Encounter for sterilization
CPT/HCPCS: 85025; 85027; 86850; 86900; 86901; 88302; 88305; 88341; 88342; 99218; J7120; A4216; G0378; J2405

== ENCOUNTER → 2020-11-16 17:17 | Outpatient (CLI) | payer MEDICAID, SELFPAY ==
[2020-11-16 15:30] VITALS: BMI 27.1
== END ==
PROVIDERS: Visit Provider Obstetrics & Gynecology
DX: R10.2 Pelvic and perineal pain (principal)
CPT/HCPCS: 87070; 87086; 87205